=== PATIENT | male | born 1940 | race Caucasian/White ===

== ENCOUNTER 2017-09-01 04:29 | Inpatient (IN) | payer MEDICARE, OTHER ==
[2017-09-01] MEDS ORDERED: Al Hydrox/Mg Hydrox/Simet LIQ* 30 ML UDC PO PRN (06:01)
[2017-09-01] MEDS ORDERED: Docusate CAP* 100 MG PO PRN (06:01)
[2017-09-01] MEDS ORDERED: Senna TAB PO PRN (06:01)
[2017-09-01] MEDS ORDERED: Ondansetron INJ* 2 MG/ML VIAL IV PRN (06:01)
[2017-09-01] MEDS ORDERED: Albuterol 2.5 MG/3 ML NEB.SOL* (0.083%) INH PRN (06:04)
[2017-09-01] MEDS ORDERED: methylPREDNISolone 125 MG* 2 ML VIAL IV ONE (06:04)
[2017-09-01] MEDS ORDERED: NS 0.9% 1000 ML* 1,000 ML IV SCH (06:15)
[2017-09-01] MEDS ORDERED: Polyethylene Glycol 3350* 17 GM PACKET PO PRN (06:18)
--- NOTE | 2017-09-01 08:52 | RAD ---
Indication: Stroke. CT of the brain was performed without IV contrast. Ventricular structures are midline. No midline shift is noted. The extraction spaces are unremarkable. There is no evidence of intracranial mass or hemorrhage. No other high or low density lesions are identified. Mastoid air cells and paranasal sinuses are otherwise unremarkable. IMPRESSION: No intracranial mass or hemorrhage is noted.
[2017-09-01] MEDS ORDERED: Atenolol TAB* 50 MG PO SCH (09:00)
[2017-09-01] MEDS ORDERED: Fluticasone NASAL SPRAY 50MCG* 16 gm SPRAY BTL BOTH NARES SCH (09:00)
[2017-09-01] MEDS: Albuterol/Ipratropium NEB.SOL* Albuterol 2.5 MG/Ipratropium 0.5 MG 3 ML INH PRN ×2 (09:13→16:42)
--- NOTE | 2017-09-01 09:33 | RAD ---
Indication: Pneumonia versus fibrosis. CT of the chest was performed without IV contrast. There are emphysematous changes of both lung vigil. Bronchiectasis with patchy areas of infiltrate are noted in the lung bases. This may represent some mild alveolitis. Peribronchial thickening is noted. No pleural fluid is identified. Chest wall deformity is noted. Small, 3 to 5 mm, pretracheal and precarinal lymph nodes are noted. Small pericardial effusion is noted. There is a cyst in the left lobe of the liver. There is an 8 mm cyst in the left lobe of the liver. The visualized abdominal organs are unremarkable. impression: Peribronchial thickening and dilated bronchials consistent with bronchiectasis. Emphysematous changes are noted. Patchy areas of airspace disease in the right base may represent areas of pneumonitis.
--- NOTE | 2017-09-01 12:22 | ECHO ---
Patient: AVELINO BOOKER [facility] Rec#: [id number] : 1940 Date: 09/01/2017 Age: 77y Height: 170.18 cm / 67.0 in Weight: 74.84 kg / 164.9 lbs Sex: M BSA: 1.86 Room#: 434 Admit Date#: 09/01/2017 Type: Inpatient Referring: Christa Dubose MD Reading: Justin Pena MD Critical Care Registered Nurse: [facility] Tr[facility] Ech[facility] Indication: Pericardial effusion BP: 133/65 HR: 87 Rhythm: NSR with PVCs Findings History: Bilateral upper lobectomies, COPD, pipe smoker. Technical Comments: The study quality is fair. The study is technically limited due to poor acoustic windows. Completed at 1100. Left Ventricle: The left ventricular chamber size is normal. Global left ventricular wall motion and contractility are within normal limits. There is normal left ventricular systolic function. The estimated ejection fraction is 50-55%. Abnormal left ventricular diastolic filling is observed, consistent with impaired relaxation. Left Atrium: The left atrium is moderately dilated. Right Ventricle: The right ventricular cavity size is normal. The right ventricular global systolic function is hyperdynamic. Right Atrium: The right atrium is mildly dilated. Aortic Valve: The aortic valve is trileaflet. The aortic valve leaflets are mildly thickened. There is no evidence of aortic regurgitation. There is no evidence of aortic stenosis. Mitral Valve: There is mitral annular calcification. The mitral valve leaflets are mildly thickened. There is a trace of mitral regurgitation. There is no evidence of mitral stenosis. Tricuspid Valve: The tricuspid valve leaflets are normal. There is trace tricuspid regurgitation. The right ventricular systolic pressure is estimated at 16 mmHg. No pulmonary hypertension is noted. Pulmonic Valve: The pulmonic valve appears normal. There is no evidence of pulmonic regurgitation. There is no pulmonic stenosis. Pericardium: A trivial pericardial effusion is visualized. There are no signs of significant hemodynamic compromise. Aorta: There is no dilatation of the ascending aorta. The aortic arch is not well visualized. The aortic root is normal in size. Pulmonary Artery: The main pulmonary artery is not well visualized. Venous: The inferior vena cava appears normal in size. There is a greater than 50% respiratory change in the inferior vena cava dimension. Conclusions There is normal left ventricular systolic function. The estimated ejection fraction is 50-55%. Global left ventricular wall motion and contractility are within normal limits. The left ventricular chamber size is normal. Abnormal left ventricular diastolic filling is observed, consistent with impaired relaxation. The left atrium is moderately dilated. The right atrium is mildly dilated. Functionally benign heart valves. A trivial pericardial effusion is visualized. There are no signs of significant hemodynamic compromise. There is no prior echocardiogram available to compare with at this time. Measurements Name Value Normal Range RVIDd (AP) 2D 2.7 cm (0.9 - 2.6) RVDdMajor (2D) 3.5 cm (2.2 - 4.4) RAd ISD 4CH 5.1 cm (3.4 - 4.9) RA (A4C)W 3.6 cm (2.9 - 4.6) IVSd (2D) 1.1 cm (0.6 - 1) LVPWd (2D) 1.1 cm (0.6 - 1) LVIDd (2D) 4.6 cm (3.6 - 5.4) LVIDs (2D) 3.4 cm - LV FS (2D) 26 % (25 - 45) Aortic Annulus 2.2 cm (1.4 - 2.6) Ao root diameter (2D) 3.3 cm (2.1 - 3.5) Ascending Ao 3.4 cm (2.1 - 3.4) LA dimension (AP) 2D 3.4 cm (2.3 - 3.8) LAd ISD 4CH 5.2 cm (2.9 - 5.3) LA ISD 4CH W 4.3 cm (2.5 - 4.5) Name Value Normal Range LA ESV SP 4CH (A/L) 57 ml - LA ESV SP 2CH (A/L) 121 ml - LA ESV BP (A/L) 88 ml - LA ESV BP (A/L) index 48 ml/m2 - LA ESV SP 4CH (MOD) 54 ml - LA ESV SP 2CH (MOD) 108 ml - Name Value Normal Range MV E-wave Vmax 0.71 m/sec - MV deceleration time 177.88 msec - MV A-wave Vmax 1.26 m/sec - MV E:A ratio 0.57 ratio - LV septal e' Vmax 0.09 m/sec - LV lateral e' Vmax 0.07 m/sec - LV E:e' septal ratio 7.78 ratio - LV E:e' lateral ratio 10.14 ratio - Name Value Normal Range AV Vmax 1.8 m/sec - AV VTI 34.3 cm - AV peak gradient 12.69 mmHg - AV mean gradient 6.06 mmHg - LVOT Vmax 1.06 m/sec - LVOT VTI 19.56 cm - LVOT peak gradient 4.53 mmHg - LVOT mean gradient 2.41 mmHg - ADRIANA Vmax 0.44 m/sec - Name Value Normal Range MV Vmax 1.4 m/sec - MV VTI 26.62 cm - MV peak gradient 7.71 mmHg - MV mean gradient 2.88 mmHg - MV PHT 55.6 msec - MVA (PHT) 3.95 cm2 - Name Value Normal Range TR Vmax 1.8 m/sec - TR peak gradient 13 mmHg - RAP 3 mmHg - RVSP 16 mmHg - IVC diameter 1.9 cm - Name Value Normal Range PV Vmax 0.76 m/sec - PV peak gradient 2.33 mmHg -
--- NOTE | 2017-09-01 14:48 | HP ---
CC: NOEMÍ Graham * HISTORY AND PHYSICAL: DATE OF ADMISSION: 09/01/17 TIME OF EVALUATION: 529. PRIMARY CARE PHYSICIAN: NOEMÍ Graham. CHIEF COMPLAINT: Shortness of breath. HISTORY OF PRESENT ILLNESS: This 77-year-old male with past medical history of hypertension, cardiac arrhythmia, COPD, and tobacco use, who presents to the emergency room from [facility] with shortness of breath, cough. The patient states around 5 p.m. yesterday evening, he began with shortness of breath and productive cough an inability to take a deep breath and catch his breath. He had chills. No fevers, no chest pain. No nausea or vomiting. He did have some diarrhea. No abdominal pain. No urinary symptoms. No changes in his weight. He usually takes Seroquel at bedtime. His family told him not to take it as they were going to the emergency room but he took it anyway. Since then, he was more lethargic, confused with some slurred speech. He does take 2 inhalers, not sure what they are, but does not use them as often as he should, according to his . Otherwise, remaining review of systems is negative. The patient states he has never had stress test either. At [facility], he was noted to have a mildly elevated troponin, was referred to [facility] for further evaluation. PAST MEDICAL HISTORY: 1. Hypertension. 2. History of bilateral upper lobectomy for collapsed lung in 1964 and 1969. 3. COPD. 4. Depression. 5. Hard of hearing. 6. History of cardiac arrhythmia. 7. Osteoporosis. 8. Constipation. 9. Tobacco use. MEDICATIONS: Will need a complete med rec but what he knows, he takes: 1. Seroquel 400 mg at bedtime. 2. Tylenol 100 mg daily. 3. Alendronate 35 mg on Fridays. 4. Flonase daily. 5. MiraLAX daily. 6. Two inhalers. ALLERGIES: MEPERIDINE. FAMILY HISTORY: Mother in her 60s from an [place]. Father from Abraham's granulomatosis. SOCIAL HISTORY: The patient lives at home with his . His healthcare proxy is his daughter, Luz. He has smoked a pipe since he has been a teenager and he states he smokes all day long. He is retired [employer] . No alcohol, illicit drug use. He states he is a DNR/DNI, has a MOLST form at home completed. REVIEW OF SYSTEMS: A 14-point review of systems as mentioned in the HPI, otherwise negative. PHYSICAL EXAMINATION GENERAL: No acute distress. Resting comfortably with his at the bedside. VITAL SIGNS: Temp 98.7, pulse rate 86, respiratory rate 26, oxygen saturation 95% on 2 L, blood pressure 118/74. HEENT: Head: Normocephalic. Pupils are equal, reactive, and anicteric. Oropharynx: Mucous membranes dry. NECK: Supple. No lymphadenopathy. RESPIRATORY: Diminished breath sounds. Prolonged expiratory phase. Bilateral expiratory wheezing and bilateral rhonchi. CARDIAC: Regular rate and rhythm, soft systolic murmur heard throughout. ABDOMEN: Soft, nontender, nondistended. EXTREMITIES: No clubbing, cyanosis, or edema. +1 DPs. NEUROLOGIC: Alert and oriented x3. No gross focal neurologic deficits other than slurred speech. DIAGNOSTIC STUDIES/LAB DATA: From [facility], white count 13, hemoglobin 14.6, hematocrit 42, platelets 212. Sodium 134, potassium 4.2, chloride 101, bicarb 24, BUN 19, creatinine 1.4, magnesium 1.7. Troponin 0.023. Chest x-ray from [facility] shows prominent interstitial markings bilaterally, more pronounced in the right lung. EKG: Does not appear to have an EKG sent from [facility]. CT of the chest done here wet read, emphysematous changes, increased opacification in the right middle lobe and lower lobe. ASSESSMENT AND PLAN: This is a 77-year-old male with past medical history of chronic obstructive pulmonary disease, tobacco use, who presents to the emergency room with shortness of breath and productive cough sent from [facility] for mildly elevated troponin. Shortness of breath. Assessment: The patient's history and physical are most consistent with community acquired pneumonia and chronic obstructive pulmonary disease exacerbation. I suspect a mildly elevated troponin secondary to demand ischemia from infectious etiology and non-ST elevation myocardial infarction. The patient does not have any chest pain. Plan: We will get an EKG now with repeated troponin, admit him to telemetry. Will continue him on azithromycin and ceftriaxone. He did get this started at [facility] and continue on DuoNeb, albuterol, and given him a dose of Solu-Medrol , and start him on prednisone. Recommend followup on the official read of his CAT scan of his chest. CHRONIC MEDICAL PROBLEMS: 1. Hypertension. We will continue on atenolol. 2. We will continue Seroquel at bedtime and MiraLAX and will obtain [facility] for further confirmation of his medication list. 3. FEN. Place him on a heart healthy diet. 4. DVT prophylaxis. The patient scores a high risk. Place him on heparin subcu t.i.d. 5. Code status. The patient states he is a DNR/DNI and has a MOLST form at home, the is going to bring it in later. PATIENT TIME: Greater than 50 minutes was spent during history and physical, more than half time spent in direct patient contact. [id number] #: [id number] DENISSE
[2017-09-01] MEDS: Heparin VIAL(*) 5000 UNITS/ML VIAL (FIVE THOUSAND) SUBCUT SCH ×2 (15:06→21:20)
--- NOTE | 2017-09-01 16:06 | PN ---
Subjective Date of Service: 09/01/17 Interval History: Pt feels a little better, still SOB and coughing Objective Active Medications: Acetaminophen (Tylenol Tab*) 650 mg PO Q4H PRN PRN Reason: FEVER/PAIN Al Hydrox/Mg Hydrox/Simethicone (Maalox Plus*) 30 ml PO Q6H PRN PRN Reason: INDIGESTION Albuterol (Ventolin 2.5 Mg/3 Ml Neb.Aletha*) 2.5 mg INH Q2H PRN PRN Reason: SOB/WHEEZING Albuterol/Ipratropium (Duoneb (Albuterol 2.5 Mg/Ipratropium 0.5 Mg)) 1 neb INH Q4H PRN PRN Reason: SOB/WHEEZING Last Admin: 09/01/17 09:13 Dose: 1 neb Atenolol (Tenormin Tab*) 50 mg PO DAILY [facility] Last Admin: 09/01/17 09:28 Dose: 50 mg Azithromycin (Zithromax Tab*) 250 mg PO Q24H [facility] Cholecalciferol (Vitamin D Tab*) 1,000 units PO DAILY [facility] Docusate Sodium (Colace Cap*) 100 mg PO DAILY [facility] Fluticasone Propionate (Flonase Nasal Platinum 50mcg*) 2 spray BOTH NARES DAILY [facility] Heparin Sodium (Porcine) (Heparin Vial(*)) 5,000 units SUBCUT Q8HR [facility] Last Admin: 09/01/17 15:06 Dose: 5,000 units Ceftriaxone Sodium 1 gm/ (Dextrose) 50 mls @ 200 mls/hr IVPB Q24H [facility] Ceftriaxone Sodium 1 gm/ (Sodium Chloride) 50 mls @ 200 mls/hr IVPB ONCE ONE Stop: 09/01/17 22:14 Levothyroxine Sodium (Synthroid Tab*) 75 mcg PO DAILY@0600 [facility] Magnesium Oxide (Magox 400 Tab*) 400 mg PO DAILY [facility] Ondansetron HCl (Zofran Inj*) 4 mg IV Q4H PRN PRN Reason: NAUSEA/VOMITING Polyethylene Glycol/Electrolytes (Miralax*) 17 gm PO DAILY [facility] Prednisone (Deltasone Tab*) 40 mg PO DAILY [facility] Quetiapine Fumarate (Seroquel Tab*) 400 mg PO BEDTIME [facility] Senna (Senokot Tab*) 1 tab PO BID PRN PRN Reason: CONSTIPATION Senna (Senokot Tab*) 1 tab PO DAILY [facility] Tamsulosin HCl (Flomax Cap*) 0.4 mg PO BEDTIME [facility] 2 L Vital Signs - 8 hr 09/01/17 09/01/17 09/01/17 08:08 08:13 09:15 Temperature 98.2 F Pulse Rate 87 82 Respiratory 20 16 18 Rate Blood Pressure 133/65 (mmHg) O2 Sat by Pulse 96 98 Oximetry 09/01/17 09/01/17 11:32 15:18 Temperature 98.5 F 98.3 F Pulse Rate 74 94 Respiratory 24 20 Rate Blood Pressure 149/70 155/85 (mmHg) O2 Sat by Pulse 97 97 Oximetry Oxygen Devices in Use Now: Nasal Cannula Appearance: 77 yo M in nAD, AAOx3 Eyes: No Scleral Icterus, PERRLA Ears/Nose/Mouth/Throat: NL Teeth, Lips, Gums, Mucous Membranes Moist Neck: NL Appearance and Movements; NL JVP, Trachea Midline Respiratory: Symmetrical Chest Expansion and Respiratory Effort, - - coarse rhonchi b/l lower lungs, chest deformity after pectus excavatum surgery Cardiovascular: NL Sounds; No Murmurs; No JVD, RRR Abdominal: NL Sounds; No Tenderness; No Distention, No Hepatosplenomegaly Lymphatic: No Cervical Adenopathy Extremities: No Edema, No Clubbing, Cyanosis Skin: No Rash or Ulcers, No Nodules or Sclerosis Neurological: Alert and Oriented x 3, NL Muscle Strength and Tone Microbiology and Other Data: Microbiology 09/01/17 08:15 Influenza Types A,B Antigen ([place]) - Final Nasal Specimen received for Influenza A/B Molecular testing Assess/Plan/Problems-Billing Assessment: 77 yo M with h/o COPD, (not on 02), HTN, pectus excavatum surgery in s, presents with pneumonia - Patient Problems (1) Pneumonia Comment: communtiy acquired. cont Ceftriaxone, Azithro. with resultant acute hypoxemic respiratory failure (2) COPD (chronic obstructive pulmonary disease) Comment: in exacerbation cont Prednisone and nebs (3) Troponin I above reference range Comment: At [facility] [place] [facility] [place] good EF suspect demand ischemia from pneumonia D/c telem (4) DVT prophylaxis Comment: HSQ Status and Disposition: inpatient
[2017-09-01] MEDS: Acetaminophen TAB* 325 MG PO PRN (18:40)
[2017-09-01] MEDS ORDERED: QUEtiapine TAB* 300 MG PO SCH (21:00)
[2017-09-01] MEDS: Tamsulosin CAP* 0.4 MG PO SCH (21:20)
[2017-09-01] MEDS: Azithromycin TAB* 250 MG PO SCH (21:20)
[2017-09-01] MEDS: QUEtiapine TAB* 100 MG PO SCH (21:20)
[2017-09-01] MEDS ORDERED: cefTRIAXone(*) 1 GM in NS 0.9% 50 ML* 50 ML IVPB ONE (22:00)
[2017-09-01] MEDS ORDERED: Azithromycin IV(*) 250 MG in NS 0.9% 250 ML* 250 ML IVPB SCH (22:00)
[2017-09-02] MEDS: Levothyroxine TAB* 75 MCG TAB PO SCH (06:16)
[2017-09-02] MEDS: Heparin VIAL(*) 5000 UNITS/ML VIAL (FIVE THOUSAND) SUBCUT SCH ×3 (06:16→20:28)
[2017-09-02] MEDS: Albuterol/Ipratropium NEB.SOL* Albuterol 2.5 MG/Ipratropium 0.5 MG 3 ML INH PRN (06:26)
[2017-09-02] MEDS: Polyethylene Glycol 3350* 17 GM PACKET PO SCH (08:14)
[2017-09-02] MEDS: Atenolol TAB* 50 MG PO SCH (08:16)
[2017-09-02] MEDS: Fluticasone NASAL SPRAY 50MCG* 16 gm SPRAY BTL BOTH NARES SCH (08:16)
[2017-09-02] MEDS: Senna TAB PO SCH (08:17)
[2017-09-02] MEDS: Cholecalciferol TAB* 1000 UNITS PO SCH (08:17)
[2017-09-02] MEDS: Magnesium Oxide TAB* 400 MG PO SCH (08:17)
[2017-09-02] MEDS: predniSONE TAB* 20 MG PO SCH (08:17)
[2017-09-02] MEDS: Docusate CAP* 100 MG PO SCH (08:18)
[2017-09-02] MEDS: Acetaminophen TAB* 325 MG PO PRN (08:18)
[2017-09-02 08:50] LABS: Hematocrit 40 % (42-52); Hemoglobin 13.6 g/dl (14.0-18.0); Mean Corpuscular HGB Conc 34 g/dl (31-36); Mean Corpuscular Hemoglobin 33 pg (27-31); Mean Corpuscular Volume 97 fL (80-94); Mean Platelet Volume 8 um3 (7.4-10.4); Platelet Count 204 10^3/ul (150-450); Red Blood Count 4.09 10^6/ul (4.0-5.4); Red Cell Distribution Width 13 % (10.5-15); White Blood Count 12.5 10^3/ul (3.5-10.8)
[2017-09-02 09:07] LABS: EGFR Non-African American 57.6 (>60)
[2017-09-02 09:34] LABS: ABS Basophils 0 10^3/ul (0-0.2); ABS Eosinophils 0 10^3/ul (0-0.6); ABS Lymphocytes 0.8 10^3/ul (1.0-4.8); ABS Monocytes 1.1 10^3/ul (0-0.8); ABS Neutrophils 10.6 10^3/ul (1.5-7.7); ABS Nucleated RBC 0 10^3/ul; Eosinophil % 0 % (0-6); Lymphocyte % 6.2 % (25-47); Nucleated Red Blood Cells % 0.1
--- NOTE | 2017-09-02 10:23 | PN ---
Subjective Date of Service: 09/02/17 Interval History: c/o worsening R sciatica pain. Breathing is better, less cough Objective Active Medications: Acetaminophen (Tylenol Tab*) 650 mg PO Q4H PRN PRN Reason: FEVER/PAIN Last Admin: 09/02/17 08:18 Dose: 650 mg Al Hydrox/Mg Hydrox/Simethicone (Maalox Plus*) 30 ml PO Q6H PRN PRN Reason: INDIGESTION Albuterol (Ventolin 2.5 Mg/3 Ml Neb.Aletha*) 2.5 mg INH Q2H PRN PRN Reason: SOB/WHEEZING Albuterol/Ipratropium (Duoneb (Albuterol 2.5 Mg/Ipratropium 0.5 Mg)) 1 neb INH Q4H PRN PRN Reason: SOB/WHEEZING Last Admin: 09/02/17 06:26 Dose: 1 neb Atenolol (Tenormin Tab*) 50 mg PO DAILY [facility] Last Admin: 09/02/17 08:16 Dose: 50 mg Azithromycin (Zithromax Tab*) 250 mg PO Q24H [facility] Last Admin: 09/01/17 21:20 Dose: 250 mg Cholecalciferol (Vitamin D Tab*) 1,000 units PO DAILY [facility] Last Admin: 09/02/17 08:17 Dose: 1,000 units Docusate Sodium (Colace Cap*) 100 mg PO DAILY [facility] Last Admin: 09/02/17 08:18 Dose: 100 mg Fluticasone Propionate (Flonase Nasal Arnold 50mcg*) 2 spray BOTH NARES DAILY [facility] Last Admin: 09/02/17 08:16 Dose: 2 spray Heparin Sodium (Porcine) (Heparin Vial(*)) 5,000 units SUBCUT Q8HR [facility] Last Admin: 09/02/17 06:16 Dose: 5,000 units Ceftriaxone Sodium 1 gm/ (Dextrose) 50 mls @ 200 mls/hr IVPB Q24H [facility] Levothyroxine Sodium (Synthroid Tab*) 75 mcg PO DAILY@0600 [facility] Last Admin: 09/02/17 06:16 Dose: 75 mcg Magnesium Oxide (Magox 400 Tab*) 400 mg PO DAILY [facility] Last Admin: 09/02/17 08:17 Dose: 400 mg Ondansetron HCl (Zofran Inj*) 4 mg IV Q4H PRN PRN Reason: NAUSEA/VOMITING Oxycodone/Acetaminophen (Percocet 5/325 Tab*) 1 tab PO Q4H PRN PRN Reason: PAIN Polyethylene Glycol/Electrolytes (Miralax*) 17 gm PO DAILY [facility] Last Admin: 09/02/17 08:14 Dose: 17 gm Prednisone (Deltasone Tab*) 40 mg PO DAILY [facility] Last Admin: 09/02/17 08:17 Dose: 40 mg Quetiapine Fumarate (Seroquel Tab*) 400 mg PO BEDTIME [facility] Last Admin: 09/01/17 21:20 Dose: 400 mg Senna (Senokot Tab*) 1 tab PO BID PRN PRN Reason: CONSTIPATION Senna (Senokot Tab*) 1 tab PO DAILY [facility] Last Admin: 09/02/17 08:17 Dose: 1 tab Tamsulosin HCl (Flomax Cap*) 0.4 mg PO BEDTIME [facility] Last Admin: 09/01/17 21:20 Dose: 0.4 mg Vital Signs - 8 hr 09/02/17 09/02/17 09/02/17 04:15 06:28 07:39 Temperature 97.2 F 97.3 F Pulse Rate 71 78 74 Respiratory 20 16 20 Rate Blood Pressure 130/52 135/66 (mmHg) O2 Sat by Pulse 98 99 96 Oximetry Oxygen Devices in Use Now: Nasal Cannula - at 2L Appearance: 77 yo M in nAD, aAOx3 Eyes: No Scleral Icterus, PERRLA Ears/Nose/Mouth/Throat: NL Teeth, Lips, Gums, Mucous Membranes Moist Neck: NL Appearance and Movements; NL JVP, Trachea Midline Respiratory: Symmetrical Chest Expansion and Respiratory Effort, - - coarse rhonchi b/l bases, pes excavatum deformity noted Cardiovascular: NL Sounds; No Murmurs; No JVD, RRR Abdominal: NL Sounds; No Tenderness; No Distention, No Hepatosplenomegaly Lymphatic: No Cervical Adenopathy Extremities: No Edema, No Clubbing, Cyanosis Skin: No Rash or Ulcers, No Nodules or Sclerosis Neurological: Alert and Oriented x 3, NL Muscle Strength and Tone Result Diagrams: 09/02/17 08:08 09/02/17 08:08 Microbiology and Other Data: Microbiology 09/01/17 08:15 Influenza Types A,B Antigen ([place]) - Final Nasal Specimen received for Influenza A/B Molecular testing Assess/Plan/Problems-Billing Assessment: 77 yo M with h/o COPD, (not on 02), HTN, pectus excavatum surgery in 1960's, presents with pneumonia - Patient Problems (1) Pneumonia Comment: communtiy acquired. cont Ceftriaxone, Azithro. with resultant acute hypoxemic respiratory failure-plan to wean off 02 today (2) COPD (chronic obstructive pulmonary disease) Comment: in exacerbation cont Prednisone and nebs (3) Troponin I above reference range Comment: At [facility] repeat [place] [facility] [place] Echo shows good EF suspect demand ischemia from pneumonia (4) DVT prophylaxis Comment: HSQ (5) Sciatic leg pain Comment: on R , chronic, cont Percocet prn, ambulation encouraged Status and Disposition: inpatient
[2017-09-02] MEDS: oxyCODONE/Acetamin 5/325 MG* TAB PO PRN (10:52)
[2017-09-02] MEDS: QUEtiapine TAB* 100 MG PO SCH (20:28)
[2017-09-02] MEDS: Azithromycin TAB* 250 MG PO SCH (20:28)
[2017-09-02] MEDS: cefTRIAXone(*) 1 GM in D5W 50 ML BAG* 50 ML IVPB SCH (20:28)
[2017-09-02] MEDS: Tamsulosin CAP* 0.4 MG PO SCH (20:28)
[2017-09-03 05:10] LABS: Hematocrit 38 % (42-52); Hemoglobin 13.1 g/dl (14.0-18.0); Mean Corpuscular HGB Conc 35 g/dl (31-36); Mean Corpuscular Hemoglobin 34 pg (27-31); Mean Corpuscular Volume 96 fL (80-94); Mean Platelet Volume 8 um3 (7.4-10.4); Platelet Count 224 10^3/ul (150-450); Red Blood Count 3.89 10^6/ul (4.0-5.4); Red Cell Distribution Width 13 % (10.5-15); White Blood Count 13.4 10^3/ul (3.5-10.8)
[2017-09-03 05:29] LABS: EGFR Non-African American 63.6 (>60)
[2017-09-03] MEDS: Levothyroxine TAB* 75 MCG TAB PO SCH (05:41)
[2017-09-03] MEDS: Heparin VIAL(*) 5000 UNITS/ML VIAL (FIVE THOUSAND) SUBCUT SCH ×3 (05:41→20:44)
[2017-09-03 05:44] LABS: ABS Basophils 0 10^3/ul (0-0.2); ABS Eosinophils 0 10^3/ul (0-0.6); ABS Lymphocytes 1.5 10^3/ul (1.0-4.8); ABS Monocytes 1.1 10^3/ul (0-0.8); ABS Neutrophils 10.7 10^3/ul (1.5-7.7); ABS Nucleated RBC 0 10^3/ul; Eosinophil % 0.3 % (0-6); Lymphocyte % 11.4 % (25-47); Nucleated Red Blood Cells % 0
[2017-09-03] MEDS: Albuterol/Ipratropium NEB.SOL* Albuterol 2.5 MG/Ipratropium 0.5 MG 3 ML INH PRN (08:38)
--- NOTE | 2017-09-03 09:35 | PN ---
Subjective Date of Service: 09/03/17 Interval History: Pt didn't sleep well, was awaken every couple of hours "for something treatment related".Feels that breathing is not any better. Objective Active Medications: Acetaminophen (Tylenol Tab*) 650 mg PO Q4H PRN PRN Reason: FEVER/PAIN Last Admin: 09/02/17 08:18 Dose: 650 mg Al Hydrox/Mg Hydrox/Simethicone (Maalox Plus*) 30 ml PO Q6H PRN PRN Reason: INDIGESTION Albuterol/Ipratropium (Duoneb (Albuterol 2.5 Mg/Ipratropium 0.5 Mg)) 1 neb INH [id number] AWAKE [facility] Atenolol (Tenormin Tab*) 50 mg PO DAILY [facility] Last Admin: 09/02/17 08:16 Dose: 50 mg Azithromycin (Zithromax Tab*) 250 mg PO Q24H [facility] Last Admin: 09/02/17 20:28 Dose: 250 mg Cholecalciferol (Vitamin D Tab*) 1,000 units PO DAILY [facility] Last Admin: 09/02/17 08:17 Dose: 1,000 units Docusate Sodium (Colace Cap*) 100 mg PO DAILY [facility] Last Admin: 09/02/17 08:18 Dose: 100 mg Fluticasone Propionate (Flonase Nasal [place] 50mcg*) 2 spray BOTH NARES DAILY [facility] Last Admin: 09/02/17 08:16 Dose: 2 spray Heparin Sodium (Porcine) (Heparin Vial(*)) 5,000 units SUBCUT Q8HR [facility] Last Admin: 09/03/17 05:41 Dose: 5,000 units Ceftriaxone Sodium 1 gm/ (Dextrose) 50 mls @ 200 mls/hr IVPB Q24H [facility] Last Admin: 09/02/17 20:28 Dose: 200 mls/hr Levothyroxine Sodium (Synthroid Tab*) 75 mcg PO DAILY@0600 [facility] Last Admin: 09/03/17 05:41 Dose: 75 mcg Magnesium Oxide (Magox 400 Tab*) 400 mg PO DAILY [facility] Last Admin: 09/02/17 08:17 Dose: 400 mg Ondansetron HCl (Zofran Inj*) 4 mg IV Q4H PRN PRN Reason: NAUSEA/VOMITING Oxycodone/Acetaminophen (Percocet 5/325 Tab*) 1 tab PO Q4H PRN PRN Reason: PAIN Last Admin: 09/02/17 10:52 Dose: 1 tab Polyethylene Glycol/Electrolytes (Miralax*) 17 gm PO DAILY [facility] Last Admin: 09/02/17 08:14 Dose: 17 gm Prednisone (Deltasone Tab*) 40 mg PO DAILY [facility] Last Admin: 09/02/17 08:17 Dose: 40 mg Quetiapine Fumarate (Seroquel Tab*) 400 mg PO BEDTIME [facility] Last Admin: 09/02/17 20:28 Dose: 400 mg Senna (Senokot Tab*) 1 tab PO BID PRN PRN Reason: CONSTIPATION Senna (Senokot Tab*) 1 tab PO DAILY [facility] Last Admin: 09/02/17 08:17 Dose: 1 tab Tamsulosin HCl (Flomax Cap*) 0.4 mg PO BEDTIME [facility] Last Admin: 09/02/17 20:28 Dose: 0.4 mg Vital Signs - 8 hr 09/03/17 09/03/17 04:03 07:51 Temperature 97.5 F Pulse Rate 69 70 Respiratory 24 14 Rate Blood Pressure 142/68 (mmHg) O2 Sat by Pulse 92 92 Oximetry Oxygen Devices in Use Now: Nasal Cannula - at 2l, 02 sat 96% Appearance: 77 yo M in nAD, aAOx3 Eyes: No Scleral Icterus, PERRLA Ears/Nose/Mouth/Throat: NL Teeth, Lips, Gums, Mucous Membranes Moist Neck: NL Appearance and Movements; NL JVP, Trachea Midline Respiratory: Symmetrical Chest Expansion and Respiratory Effort, - - R sided rhonchi and b/l lower hayes wheezes Cardiovascular: NL Sounds; No Murmurs; No JVD, RRR, - - pes excavatum noted Abdominal: NL Sounds; No Tenderness; No Distention, No Hepatosplenomegaly Lymphatic: No Cervical Adenopathy Extremities: No Edema, No Clubbing, Cyanosis Skin: No Rash or Ulcers, No Nodules or Sclerosis Neurological: Alert and Oriented x 3, NL Muscle Strength and Tone Result Diagrams: 09/03/17 04:55 09/03/17 04:55 Microbiology and Other Data: Microbiology 09/01/17 08:15 Influenza Types A,B Antigen ([place]) - Final Nasal Specimen received for Influenza A/B Molecular testing Assess/Plan/Problems-Billing Assessment: 77 yo M with h/o COPD, (not on 02), HTN, pectus excavatum surgery in 1960's, presents with pneumonia - Patient Problems (1) Pneumonia Comment: community acquired. cont Ceftriaxone, Azithro. with resultant acute hypoxemic respiratory failure-plan work on weaning off 02 today (2) COPD (chronic obstructive pulmonary disease) Comment: in exacerbation cont Prednisone and nebs due to continuation of wheezing, will start scheduled nebs (3) Troponin I above reference range Comment: At [facility] repeat troponin neg [place] [facility] shows good EF suspect demand ischemia from pneumonia (4) DVT prophylaxis Comment: HSQ (5) Sciatic leg pain Comment: on R , chronic, cont Percocet prn, ambulation encouraged (6) KAITLIN (acute kidney injury) Comment: due to pneumonia, resolving Status and Disposition: inpatient
[2017-09-03] MEDS: Polyethylene Glycol 3350* 17 GM PACKET PO SCH (09:55)
[2017-09-03] MEDS: Atenolol TAB* 50 MG PO SCH (09:57)
[2017-09-03] MEDS: Magnesium Oxide TAB* 400 MG PO SCH (09:57)
[2017-09-03] MEDS: Cholecalciferol TAB* 1000 UNITS PO SCH (09:57)
[2017-09-03] MEDS: predniSONE TAB* 20 MG PO SCH (09:58)
[2017-09-03] MEDS: Senna TAB PO SCH (09:58)
[2017-09-03] MEDS: Docusate CAP* 100 MG PO SCH (09:58)
[2017-09-03] MEDS: Fluticasone NASAL SPRAY 50MCG* 16 gm SPRAY BTL BOTH NARES SCH (09:59)
[2017-09-03] MEDS: oxyCODONE/Acetamin 5/325 MG* TAB PO PRN ×2 (10:08→21:02)
[2017-09-03] MEDS ORDERED: Albuterol/Ipratropium NEB.SOL* Albuterol 2.5 MG/Ipratropium 0.5 MG 3 ML INH SCH (11:00)
[2017-09-03] MEDS: Albuterol/Ipratropium NEB.SOL* Albuterol 2.5 MG/Ipratropium 0.5 MG 3 ML INH SCH ×2 (11:55→18:45)
[2017-09-03] MEDS: Azithromycin TAB* 250 MG PO SCH (20:43)
[2017-09-03] MEDS: Tamsulosin CAP* 0.4 MG PO SCH (20:44)
[2017-09-03] MEDS: QUEtiapine TAB* 100 MG PO SCH (20:44)
[2017-09-03] MEDS: cefTRIAXone(*) 1 GM in D5W 50 ML BAG* 50 ML IVPB SCH (20:44)
[2017-09-04] MEDS: Heparin VIAL(*) 5000 UNITS/ML VIAL (FIVE THOUSAND) SUBCUT SCH (05:35)
[2017-09-04] MEDS: Levothyroxine TAB* 75 MCG TAB PO SCH (05:36)
[2017-09-04] MEDS: oxyCODONE/Acetamin 5/325 MG* TAB PO PRN ×2 (05:43→14:04)
[2017-09-04] MEDS: Albuterol/Ipratropium NEB.SOL* Albuterol 2.5 MG/Ipratropium 0.5 MG 3 ML INH SCH ×3 (05:48→13:37)
[2017-09-04] MEDS: Senna TAB PO SCH (09:56)
[2017-09-04] MEDS: Cholecalciferol TAB* 1000 UNITS PO SCH (09:57)
[2017-09-04] MEDS: predniSONE TAB* 20 MG PO SCH (09:57)
[2017-09-04] MEDS: Docusate CAP* 100 MG PO SCH (09:57)
[2017-09-04] MEDS: Magnesium Oxide TAB* 400 MG PO SCH (09:57)
[2017-09-04] MEDS: Atenolol TAB* 50 MG PO SCH (09:57)
[2017-09-04] MEDS: Polyethylene Glycol 3350* 17 GM PACKET PO SCH (09:58)
[2017-09-04] MEDS: Fluticasone NASAL SPRAY 50MCG* 16 gm SPRAY BTL BOTH NARES SCH (09:58)
[2017-09-04] MEDS: Acetaminophen TAB* 325 MG PO PRN (10:15)
[2017-09-04 15:54] VITALS: BP 162/74
--- NOTE | 2017-09-05 11:25 | DS ---
CC: [place] [facility], [place], [place] * DISCHARGE SUMMARY: DATE OF ADMISSION: 09/01/17 DATE OF DISCHARGE: 09/04/17 PRIMARY CARE PROVIDER: [place] [facility] in [place], [place]. DISCHARGE DIAGNOSES: 1. Pneumonia. 2. Chronic obstructive pulmonary disease exacerbation. 3. Acute kidney injury due to above. SECONDARY DIAGNOSES: 1. Hypertension. 2. History of chronic obstructive pulmonary disease. 3. History of surgery on chest for pectus excavatum in 1960s. 4. Depression. 5. History of hard of hearing. 6. History of cardiac arrhythmia. 7. Osteoporosis. 8. Constipation. 9. History of pipe use. 10. The patient is not on oxygen at home. MEDICATIONS AT DISCHARGE: Include: 1. Seroquel 400 mg at bedtime. 2. Tylenol on a p.r.n. basis. 3. Alendronate 35 mg every Monday. 4. Flonase daily. 5. DuoNeb every 4 hours p.r.n. 6. Atenolol 25 mg daily. 7. Azithromycin 250 mg daily for another 3 days. 8. Cefdinir 300 mg b.i.d. for another 7 days. 9. Vitamin D 1000 units daily. 10. Colace 100 mg daily. 11. Levothyroxine 75 mcg daily. 12. Mag-Ox 400 mg daily. 13. Multivitamin daily. 14. Striverdi 2.5 mcg daily 1 inhalation. 15. MiraLAX 17 g daily. 16. Prednisone taper 40 mg daily for 3 days and 20 mg daily for 3 days, then 10 mg daily for 4 days, and then stop. 17. Senokot 1 tablet daily. 18. Flomax 0.4 mg at bedtime. LABORATORY DATA AND STUDIES PERFORMED DURING THE HOSPITAL STAY: Included: On 09/03/17, white blood cell count of 13.4, hemoglobin of 13.1, hematocrit of 38, MCV of 96, and platelets of 224. Sodium 136, potassium 4.5, chloride 106, CO2 26, BUN 28, creatinine 1.12. Troponin of 0.02. Influenza testing was negative. Transthoracic echocardiogram obtained on 09/01/17, showed EF of 55% to 60%, impaired relaxation and abnormal left ventricular diastolic filling, functionally benign heart valves. HOSPITALIZATION COURSE: Mr. Love is a 77-year-old male with a history of COPD that was not oxygen dependent and pectus excavatum surgery in 1960s, who presented to the hospital complaining of shortness of breath and cough. He was noted to have mildly elevated troponin when he was evaluated at [facility] Emergency Department and due to that he was transferred to our facility. Here, he was noted to have a negative troponin. He had a CT at [facility], which the preliminary read showed emphysema changes and increased opacification of the right middle lobe and lower lobe. The patient was admitted for community-acquired pneumonia and treated with ceftriaxone, azithromycin, as well as prednisone for COPD exacerbation. He was initially in hypoxemic respiratory failure due to pneumonia and COPD that resolved and by the time of his discharge. At the time of discharge, he still continues to have wet cough, although less productive. He still has rhonchi on the right side. He is not hypoxemic anymore and he did not qualify for oxygen to go home with. PHYSICAL EXAMINATION AT TIME OF DISCHARGE: Blood pressure 155/68, heart rate of 62 and regular, respiratory rate 16, oxygen saturation 98% on room air, temperature 97.7. General: The patient is a very pleasant 77-year-old male, who is in no acute distress. Alert, awake, and oriented x3. HEENT: Head: Atraumatic and normocephalic. Eyes: Pupils are equal and reactive to light and accommodation. Oropharynx clear. Mucosa moist. Neck: Supple. No JVD. No bruits bilaterally. Cardiovascular: Regular rate and rhythm. No murmur. Respiratory: Rhonchi in right lower and middle lobe, otherwise clear. Abdomen : Soft and nontender. Bowel sounds are present in all 4 quadrants. Extremities: There is no edema. Pulses +2 bilaterally. There is no clubbing or cyanosis. Neuro Evaluation: Speech clear. Cranial nerves II through XII grossly intact. Motor strength is 5/5 bilaterally. At discharge, the patient [facility] [place] [facility] Please note that this is a short summary of the patient's hospital stay. Please refer to further medical records for details. TIME SPENT: Approximately 40 minutes was spent on the patient's discharge. [id number]/[facility] #: [id number] [facility]
--- NOTE | 2017-09-08 00:25 | ED ---
Tatyana Kraft Emily, scribed for Geovani Peralta MD on 09/01/17 at 0450 . Shortness of Breath - HPI Summary HPI Summary: This patient is a 77 year old M BIBA to [facility] accompanied by family with a chief complaint of SOB that began at 1700 yesterday. The patient rates the pain 0/10 in severity. Symptoms aggravated by nothing. Symptoms alleviated by nothing. Patient reports fatigue and productive cough. Patient denies CP. - History of Current Complaint Chief Complaint: EDShortnessOfBreath Hx Obtained From: Patient Onset/Duration: Sudden Onset, Lasting Hours, Still Present Current Severity: Mild Aggrevating Factors: Nothing Alleviating Factors: Nothing Associated Signs & Symptoms: Cough (Productive) - Allergy/Home Medications Allergies/Adverse Reactions: Allergies Allergy/AdvReac Type Severity Reaction Status Date / Time [place] Allergy Unknown Verified 09/01/17 04:35 Reaction Details Meperidine [From Demerol HCl] Allergy Hives Verified 09/01/17 04:35 PMH/Surg Hx/FS Hx/Imm Hx Previously Healthy: No Cardiovascular History: Reports: Other Cardiovascular Problems/Disorders - Arrhythmia Opthamlomology History: Denies: Hx Legally Blind EENT History: Denies: Hx Deafness Psychiatric History: Reports: Hx Bipolar Disorder - Immunization History Date of Tetanus Vaccine: unk Date of Influenza Vaccine: fall 2016 Infectious Disease History: No Infectious Disease History: Denies: Traveled Outside the [place] in Last 30 Days - Family History Known Family History: Positive: Diabetes - Social History Occupation: Retired Lives: With Family Alcohol Use: Rare Substance Use Type: Reports: None Smoking Status (MU): Smoker, Current Status Unknown Review of Systems - ROS Summary Review of Systems Summary: Appearance: Well-appearing, Well-nourished Skin: Warm, Dry, No rash Eyes: Normal, PERRL, EOMI, sclera anicteric ENT: Normal Neck: Supple, nontender Respiratory: Clear to auscultation Cardiovascular: S1, S2, no murmur, no rub, no gallop Abdomen: Soft, nontender, no organomegaly Bowel sounds: Present Musculoskeletal: Normal, Strength/ROM Intact, no edema, pulses symmetrical Neurological: Normal, A&Ox3, cranial nerves II-XII WNL, follows commands, gait not tested, sensation intact to pin and light touch Psychiatric: affect normal, behavior appropriate, dressed appropriately, judgment intact Positive: Fatigue Negative: Chest Pain Positive: Shortness Of Breath, Cough All Other Systems Reviewed And Are Negative: Yes Physical Exam - Summary Physical Exam Summary: Appearance: Well-appearing, Well-nourished Skin: Warm, Dry, No rash Eyes: Normal, PERRL, EOMI, sclera anicteric ENT: Normal Neck: Supple, nontender Respiratory: Bilateral trirales. Rhonchi. Expiratory wheezes Cardiovascular: S1, S2, no murmur, no rub, no gallop Abdomen: Soft, nontender, no organomegaly Bowel sounds: Present Musculoskeletal: Normal, Strength/ROM Intact, no edema, pulses symmetrical Neurological: Normal, A&Ox3, cranial nerves II-XII WNL, follows commands, gait not tested, sensation intact to pin and light touch Psychiatric: affect normal, behavior appropriate, dressed appropriately, judgment intact Triage Information Reviewed: Yes Vital Signs On Initial Exam: Initial Vitals Temp Pulse Resp BP Pulse Ox 98.7 F 85 26 133/61 88 09/01/17 04:32 09/01/17 04:32 09/01/17 04:32 09/01/17 04:32 09/01/17 04:32 Vital Signs Reviewed: Yes - [place] Coma Scale Coma Scale Total: 15 Diagnostics - Vital Signs Vital Signs Temp Pulse Resp BP Pulse Ox 09/01/17 04:32 98.7 F 85 26 133/61 88 - Laboratory Lab Statement: Any lab studies that have been ordered have been reviewed, and results considered in the medical decision making process. - Radiology CXR Radiology Interpretation Completed By: ED Physician - CXR from [facility] reveals significant scarring at the left base. - CT Chest CT CT Interpretation Completed By: Radiologist - Chest CT reveals, per radiologist , there are fairly advanced emphysematous changes as well as interstitial/ fibrotic changes. However, there are patchy infiltrates in the right lower lobe which ay represent a superimposed acute pneumonia. There is also bilateral lower lobe and right middle lobe peribronchial thickening which could represent bronchitis/bronchiolitis. Would need old scans to determine if all of this is stable. No pleural effusions. There is cardiomegaly as well as a moderate pericardial effusion. Incidental note made of a 9.9 mm indeterminate low density lesion in the anterior aspect of the liver. Right rib deformity possibly due to old trauma. ED physician has reviewed this radiology report Course/Dx - Course Assessment/Plan: This patient is a 77 year old M BIBA to [facility] accompanied by family with a chief complaint of SOB that began at 1700 yesterday. Physical Exam Findings. Bilateral trirales. Rhonchi. Expiratory wheezes. CXR from [facility] reveals significant scarring at the left base. ED physician has reviewed this radiology report. Bloodwork obtained. Chest CT reveals, per radiologist, there are fairly advanced emphysematous changes as well as interstitial/fibrotic changes. However, there are patchy infiltrates in the right lower lobe which ay represent a superimposed acute pneumonia. There is also bilateral lower lobe and right middle lobe peribronchial thickening which could represent bronchitis/bronchiolitis. Would need old scans to determine if all of this is stable. No pleural effusions. There is cardiomegaly as well as a moderate pericardial effusion. Incidental note made of a 9.9 mm indeterminate low density lesion in the anterior aspect of the liver. Right rib deformity possibly due to old trauma. Consult with Dr. Bautista (hospitalist) at 0615. She agrees to admit pt for further evaluation. The patient is agreeable with this plan. - Diagnoses Provider Diagnoses: COPD (chronic obstructive pulmonary disease), positive troponin, possible right lower lobe pneumonia Discharge - Discharge Plan Condition: Stable Disposition: ADMITTED TO [facility] The documentation as recorded by the Tatyana tarango Emily accurately reflects the service I personally performed and the decisions made by me, Geovani Peralta MD.
== END 2017-09-04 17:00 | disposition home or self-care (01) | DRG 193 ==
LOC: ED 04:29 → MEDTELE 06:01
PROVIDERS: ADMIT Pediatrics; ATTEND Internal Medicine
DX: J18.9 Pneumonia, unspecified organism (principal); J96.01 Acute respiratory failure with hypoxia; N17.9 Acute kidney failure, unspecified; J44.1 Chronic obstructive pulmonary disease with (acute) exacerbation; F33.9 Major depressive disorder, recurrent, unspecified; F17.290 Nicotine dependence, other tobacco product, uncomplicated; I10 Essential (primary) hypertension; M81.0 Age-related osteoporosis without current pathological fracture; K59.00 Constipation, unspecified; Z79.1 Long term (current) use of non-steroidal anti-inflammatories (NSAID); Z79.899 Other long term (current) drug therapy; Z88.8 Allergy status to other drugs, medicaments and biological substances; Z82.49 Family history of ischemic heart disease and other diseases of the circulatory system; Z66 Do not resuscitate; M79.604 Pain in right leg
CPT/HCPCS: 36415; 70450; 71250; 80048; 84484; 85025; 87502; 87899; 93005; 93306; 94640; 94760; 99284; A9270-GY; J0456; J0696; J1644; J2930; J7512